=== PATIENT | male | born 1985 | race Caucasian/White ===

== ENCOUNTER 2021-12-25 17:08 | Emergency (ER) | payer OTHER ==
[2021-12-25 20:00] LABS: RED BLOOD COUNT 4.46 M/UL (4.20-5.50); WHITE BLOOD COUNT 8.5 K/UL (4.5-11.0)
[2021-12-25 20:25] LABS: BUN/CREATININE RATIO 20 (0-10)
[2021-12-25] MEDS ORDERED: IBU600 MG PO (21:48)
== END 2021-12-25 22:12 | disposition home or self-care (01) ==
LOC: ER1 17:08
PROVIDERS: Student in an Organized Health Care Education/Training Program
DX: M54.9 Dorsalgia, unspecified (principal)
CPT/HCPCS: 80053; 85025; 87086; 99284